=== PATIENT | male | born 1990 | race Two or more races ===

== ENCOUNTER 2024-11-07 06:55 | Emergency (ER) | payer MEDICAID, SELFPAY ==
[2024-11-07 06:57] VITALS: BMI 22.5
[2024-11-07 07:04] VITALS: BP 119/76; PULSE 67; RESP 18; TEMP 36.4; O2SAT 97
--- NOTE | 2024-11-07 07:09 | XR_ITS ---
Examination: PA lateral chest 2 views Technique: Upright PA lateral chest 2 views Exam date and time: November 07, 2024 0732 hrs. Indications: Onset chest pain coughing one month Findings: Accentuation bronchovascular markings. Normal heart size No lobar pneumonia No pulmonary edema Impression: Bronchitis pattern
--- NOTE | 2024-11-07 07:09 | EKG_ITS ---
[facility] Test Date: 2024-11-07 Pat Name: SLIME BUSTAMANTE Department: Room: - Gender: Male [employer] Administrator: : 1990 Requested By: Kyle Stovall (KAYLEE) Order Number: [id number] Reading MD: Kyle Stovall (MATERN[employer]LOOR SUPERVISOR) Measurements Intervals [place] Rate: 71 P: 64 OK: 158 QRS: 61 QRSD: 117 T: 43 QT: 368 QTc: 401 Interpretive Statements SINUS RHYTHM MODERATE INTRAVENTRICULAR CONDUCTION DELAY [110+ ms QRS DURATION] EARLY REPOLARIZATION [ST ELEVATION WITH NORMALLY INFLECTED T-WAVE] No previous ECG available for comparison /[id number]/[email or web address]/[id number].pdf
[2024-11-07 07:56] LABS: Basophils # (Auto) 0.1 Thou/mm3 (0.0-0.2); Basophils % (Auto) 1 % (0-2.5); Eosinophils # (Auto) 0.5 Thou/mm3 (0.0-0.5); Eosinophils % (Auto) 9 % (0-10); Hemoglobin 15.7 g/dL (13.5-16.0); Immature Granulocytes % (Auto) 0 % (0-0); Immature Granulocytes Auto 0.01 Thou/mm3 (0.00-0.00); Lymphocytes % (Auto) 36 % (10-50); Mean Corpuscular HGB Conc 34.1 g/dl (31.0-37.0); Mean Corpuscular Volume 94 fL (80-100); Monocytes # (Auto) 0.4 Thou/mm3 (0.0-0.8); Monocytes % (Auto) 7 % (0-12); Neutrophils # (Auto) 2.7 Thou/mm3 (1.8-7.7); Neutrophils % (Auto) 47 % (37-80); Nucleated Red Blood Cell % 0 /100 WBC (0); Platelet Count 293 Thou/mm3 (140-440); RDW Standard Deviation 45.2 fL (35.1-43.9); White Blood Count 5.7 Thou/mm3 (3.8-10.6)
[2024-11-07 08:13] LABS: Alanine Aminotransferase 13 U/L (10-49); Albumin, Serum 4.6 gm/dL (3.5-5.0); Albumin/Globulin Ratio 1.8 (1.2-2.2); Alkaline Phosphatase 63 U/L (46-116); Anion Gap 6 (7-16); Aspartate Amino Transferase 13 U/L (0-34); BUN/Creatinine Ratio 10 Ratio (12-20); Bilirubin,Total 0.6 mg/dL (0.3-1.2); Blood Urea Nitrogen 11 mg/dL (9-23); Carbon Dioxide 30.1 mMol/L (20.0-31.0); Chloride 107 mMol/L (98-107); Creatinine (Component) 1.1 mg/dL (0.6-1.3); Estimated Creatinine Clearance 112.3 mL/min (>60); Globulin 2.6 gm/dL (2.3-3.5); Glucose 84 mg/dL (74-106); Osmolality,Calculated 283 (275-295); Sodium 143 mMol/L (136-145); Total Protein 7.2 gm/dL (5.7-8.2); Troponin I < 0.020 ng/mL (0.0-0.045); eGFR > 60 See Note
--- NOTE | 2024-11-07 08:51 | PD.EDURI ---
Upper Respiratory Inf. RME/HPI General Chief Complaint: Flu Like Symptoms Stated Complaint: COUGHING ,LEFT LUNG PAIN Time Seen by Provider: 11/07/24 07:20 Arrival date/time: 11/07/24 06:55 34-year-old male presents to the emergency department today for complaints of coughing and lung pain ongoing since April intermittently Limitations: no limitations Related Data Previous Rx's ?Medication ?Instructions ?Recorded oxycodone-acetaminophen 5 mg-325 1 tab PO TID PRN pain #15 tabs 10/21/22 mg tablet (Percocet) albuterol sulfate 90 mcg/actuation 2 puff inhalation Q6H PRN 11/07/24 aerosol inhaler (Ventolin HFA) shortness of breath or wheezing #8.5 grams benzonatate 100 mg capsule 100 mg PO TID #14 caps 11/07/24 prednisone 10 mg tablet 30 mg (3 x 10 mg) PO BID 3 days 11/07/24 #18 tabs Allergies Allergy/AdvReac Type Severity Reaction Status Date / Time No Known Allergies Allergy Verified 11/07/24 06:57 Review of Systems Review of Systems Systems Reviewed: All systems reviewed, normal except as documented Constitutional Constitutional: Reports system reviewed and no additional complaints, except as documented, Denies fever(s) and Denies headache(s) Eyes Eyes: Reports system reviewed and no additional complaints, except as documented and Denies blurry vision ENT Ears, Nose, Mouth, and Throat: Reports system reviewed and no additional complaints, except as documented, Denies headache(s), Denies nasal congestion and Denies nasal discharge Cardiovascular Cardiovascular: Reports system reviewed and no additional complaints, except as documented, Denies chest pain and Denies dyspnea Respiratory Respiratory: Reports system reviewed and no additional complaints, except as documented, Reports chest congestion, Reports cough and Denies dyspnea Gastrointestinal Gastrointestinal: Reports system reviewed and no additional complaints, except as documented and Denies abdominal pain Integumentary/Breasts Skin/Breast: Reports system reviewed and no additional complaints, except as documented and Denies rash Neurologic Neurologic: Reports system reviewed and no additional complaints, except as documented, Reports as per HPI and Denies headache(s) Past Medical History Past Medical History CARDIAC: Negative Congestive Heart Failure RESPIRATORY: Negative Chronic Obstructive Pulmonary Disease (COPD) GENITOURINARY: Negative Renal Disease ENDOCRINE: Negative Diabetes Mellitus Type 1 or Diabetes Mellitus Type 2 Social History SMOKING STATUS: Never smoker ED Exam General Limitations: Present no limitations General appearance: Present alert and in no apparent distress Head Head exam: Present atraumatic, normocephalic and normal inspection Eye Eye exam: Present normal appearance, PERRL and EOMI; Absent conjunctival injection ENT ENT exam: Present normal exam, normal oropharynx and mucous membranes moist Neck Neck exam: Present normal inspection, full ROM and trachea midline Chest Chest inspection: Present normal inspection and symmetric chest wall rise Respiratory Respiratory exam: Present normal lung sounds bilaterally; Absent respiratory distress, wheezes, stridor, accessory muscle use or prolonged expiratory phase Cardiovascular Cardiovascular exam: Present regular rate, normal rhythm and normal heart sounds Abdominal Exam Abdominal exam: Present soft and normal bowel sounds Extremities Exam Extremities exam: Present normal inspection and full ROM Back Exam Back exam: Present normal inspection and full ROM Neurological Exam Neurological exam: Present alert, oriented X3, CN II-XII intact, normal gait and reflexes normal; Absent motor sensory deficit Psychiatric Psychiatric exam: Present normal affect and normal mood Skin Skin exam: Present warm, dry, intact and normal color; Absent rash Course Quality Measures none Orders Category Date Time Status EKG (ED ONLY) *Do not use* NOW Care 11/07/24 07:09 Completed EKG (ED Only) Stat Exams 11/07/24 07:09 Draft XR chest 2V Stat Exams 11/07/24 07:09 Completed CBC Stat Lab 11/07/24 07:40 Completed Cocci Serology IgM with reflex to IgG [Cocci Serology, Lab 11/07/24 07:40 Completed Unk History] Stat Comprehensive Metabolic Panel Stat Lab 11/07/24 07:40 Completed Troponin I Stat Lab 11/07/24 07:40 Completed Vital Signs Vital signs: Vital Signs Temperature 97.6 F 11/07/24 07:04 Pulse Rate 67 11/07/24 07:04 Respiratory Rate 18 11/07/24 07:04 Blood Pressure 119/76 11/07/24 07:04 Pulse Oximetry (%) 97 11/07/24 07:04 Oxygen Delivery Method Room Air 11/07/24 07:04 O2 saturation 97% room air within normal limits Procedures -ED EKG Interpretation #1: Date of EK11/07/24 Time of EK:10 Rate: 71 Interpretation: Interpreted by me EKG Impression: Normal sinus rhythm, No acute ST-T changes, No ectopy, No ischemic changes, Normal QRS, Normal intervals and Normal axis Upper Respiratory Infection MDM Narrative MDM Narrative:: 34-year-old male presents to the emergency department today for complaints of coughing and lung pain ongoing since April intermittently On exam patient well-appearing patient does not appear ill or toxic no acute distress Lab work as well as imaging obtained no acute emergent findings noted Patient discharged home in no distress to follow-up with primary care doctor in the next 24 to 48 hours and for any worsening symptoms to return to the ER immediately Patient data External records reviewed:: [facility] previous records Clinical information provided by:: patient Social determinants that could affect healthcare access:: none Patient has the following chronic illnesses:: None How is presenting disease/condition affected by chronic disease/condition?: no chronic disease Evaluation data The following diagnostics were reviewed and interpreted by me:: lab results, radiology exam(s) and EKG tracing(s) Lab and/or radiology exams considered but not ordered:: Labs, radiology, EKG obtained Interpretation Summary: Reviewed by me Medications / Prescriptions Medications or Prescriptions considered but not ordered:: Given Medication administrations:: Given Consultations Consultation(s) initiated? (list below): No Diagnosis Upper Respiratory Differential Diagnosis: upper respiratory infection, sinusitis, bronchitis and influenza Most likely diagnosis given after review of the tests above:: URI, cough, allergies Admission Indicated Admission indicated?: not indicated Admission Request Was there a request for admission?: No Disposition Plan Disposition Plan: Discharge Discharge Attestation Discharge Attestation: The patient and all family members were given an opportunity to ask questions and understood the discharge instructions. Discharge instructions specifically effects, indications for sooner follow up or return to the emergency department, and the expected course of current diagnosis. Patient condition: Stable Discharge Plan Plan Patient Disposition: HOME (Self Care) Disposition Comment: Stable Prescriptions/Referrals Prescriptions/Med Rec: New prednisone 10 mg tablet 30 mg PO BID 3 Days Qty: 18 0RF benzonatate 100 mg capsule 100 mg PO TID Qty: 14 0RF albuterol sulfate [Ventolin HFA] 90 mcg/actuation HFA aerosol inhaler 2 puff inhalation Q6H PRN (Reason: shortness of breath or wheezing) Qty: 8.5 0RF No Action oxycodone-acetaminophen [Percocet] 5-325 mg tablet 1 tab PO TID MDD 4 g apap PRN (Reason: pain) Qty: 15 0RF Referrals: No Primary/Family,Physician [Primary Care Provider] - In 1 week Problem List Clinical Impression: Cough, Back pain Patient/Caregiver Discharge Instructions Education Materials: ED Back Care Tips Additional Instructions: Please follow up with your primary care doctor in the next 24-48hrs for any worsening symptoms return here immediately Your coccidiomycosis test is pending I will call you with results Print Language: [place] Stand Alone Forms: Kate Award Info., Patient Portal Info Letter PA/INSTALLER [employer]ING Supervising Physician PA/[employer] Supervising Physician: Dr [email or web address]
[2024-11-07 13:58] LABS: Cocci Serology, IgM Negative (Negative)
[2024-11-08 10:49] LABS: Cocci Serology, IgG Negative (Negative)
== END 2024-11-07 09:03 | disposition home or self-care (01) ==
PROVIDERS: Nurse Practitioner Primary Care; Emergency Provider Emergency Medicine
DX: R05.9 Cough, unspecified (principal); M54.9 Dorsalgia, unspecified; R07.9 Chest pain, unspecified; I45.89 Other specified conduction disorders
CPT/HCPCS: 36415; 71046; 80053; 84484; 85025; 86331; 86635; 93005; 99283